=== PATIENT | female | born 1985 | race Caucasian/White ===

== ENCOUNTER 2018-08-01 22:17 | Emergency (ER) | payer MEDICAID ==
[~2018-08-01] VITALS: Ht 170.2 cm; Wt 113.4 kg
[2018-08-01 22:25] VITALS: BP_SYST 161
[2018-08-01] MEDS ORDERED: KETOROLAC TROMETHAMINE 30 MG VIAL IVP ONE (22:30)
[2018-08-01 22:45] VITALS: BP_SYST 161
== END 2018-08-01 22:45 | disposition home or self-care (01) ==
LOC: SED 22:17
DX: J02.9 Acute pharyngitis, unspecified (principal); R03.0 Elevated blood-pressure reading, without diagnosis of hypertension; F17.210 Nicotine dependence, cigarettes, uncomplicated
CPT/HCPCS: 99283

== ENCOUNTER 2018-11-03 18:45 | Emergency (ER) | payer MEDICAID ==
[~2018-11-03] VITALS: Ht 170.2 cm; Wt 113.4 kg
[2018-11-03 19:10] VITALS: BP_SYST 138
--- NOTE | 2018-11-03 19:15 | NUR ---
Pt placed to ER waiting room in stable condition. Given urine specimen cup.
--- NOTE | 2018-11-03 21:01 | NUR ---
Pt brought to ER bed 04, report given to MYRON Chapman.
[2018-11-03 21:40] LABS: BILIRUBIN,URINE NEGATIVE (NEGATIVE); BLOOD, URINE 2+ (NEGATIVE); CLARITY/URINE SL HAZY (CLEAR); COLOR,URINE YELLOW (YELLOW); GLUCOSE,URINE NEGATIVE (NEGATIVE); KETONES,URINE TRACE (NEGATIVE); LEUKOCYTE ESTERASE ,URINE NEGATIVE (NEGATIVE); NITRITE, URINE NEGATIVE (NEGATIVE); PH,URINE 5.5 (5.0-8.0); PROTEIN URINE NEGATIVE (NEGATIVE); UROBILINOGEN,URINE 0.2 (0.2-1.0)
[2018-11-03 21:47] LABS: BACTERIA,URINE FEW /HPF (None Seen); RBC,URINE 0-3 /HPF (0-3); WBC,URINE 0-3 /HPF (0-3)
[2018-11-03 21:48] LABS: MUCUS,URINE None Seen /LPF (None Seen)
--- NOTE | 2018-11-03 21:48 | NUR ---
PATIENT MOVED TO [facility]
--- NOTE | 2018-11-03 22:42 | NUR ---
Dr. Tamayo bedside for Pt eval
--- NOTE | 2018-11-03 22:45 | NUR ---
Pt came into ED C/O sudden onset of left lower back pain that radiates down her left leg and left toe today. The pain is rated 5/10 intensity and exacerbates when bending or lying on her side. She states a similar episode 3 years ago and was given Naproxen and a muscle relaxer by her primary care physician with minimal improvement. The patient reports taking 800mg Ibuprofen with minimal improvement. Pt states having history of left sciatica. No other compliants and or injuries noted. VSS no s/s of acute distress. Resting on chair
[2018-11-03 23:06] VITALS: BP_SYST 142
--- NOTE | 2018-11-03 23:06 | NUR ---
Patient given written and verbal discharge instructions and verbalizes understanding. ER MD Tamayo discussed with patient the results and treatment provided. Patient in stable condition. ID arm band removed. Rx of Medrol Dosepak, Diazepam, Motrin given. Patient educated on pain management and to follow up with PMD. Pain Scale 0. Opportunity for questions provided and answered. Medication side effect fact sheet provided.
== END 2018-11-03 23:06 | disposition home or self-care (01) ==
LOC: SED 18:45
DX: M54.42 Lumbago with sciatica, left side (principal); F17.210 Nicotine dependence, cigarettes, uncomplicated
CPT/HCPCS: 81000-TC; 81025; 99283

== ENCOUNTER 2023-06-07 16:28 | Emergency (ER) | payer MEDICAID ==
[~2023-06-07] VITALS: Ht 170.2 cm; Wt 122.5 kg
[2023-06-07 17:00] VITALS: BP_SYST 151; PULSE 97; RESP 18; TEMP 98; O2SAT 98
[2023-06-07 17:18] VITALS: BP_SYST 151; PULSE 97; RESP 18; TEMP 98; O2SAT 98
[2023-06-07] MEDS ORDERED: LIDOINT TP (19:36)
[2023-06-07] MEDS ORDERED: IBUP-1969 PO (19:36)
[2023-06-07] MEDS ORDERED: ACET-2634 PO (19:36)
== END 2023-06-07 19:58 | disposition home or self-care (01) ==
LOC: SED 16:28
DX: M25.571 Pain in right ankle and joints of right foot (principal); Z79.899 Other long term (current) drug therapy
CPT/HCPCS: 81025; 99283